=== PATIENT | male | born 1985 | race Two or more races ===

== ENCOUNTER 2018-10-23 11:45 | Emergency (ER) | payer OTHER ==
[~2018-10-23] VITALS: Ht 165.1 cm; Wt 89.6 kg
[2018-10-23 15:50] VITALS: BP 109/57
== END 2018-10-23 15:54 | disposition home or self-care (01) ==
LOC: ED 15:45
DX: R55 Syncope and collapse (principal)
CPT/HCPCS: 36415; 70450; 80048; 82040; 85025; 93005; 99284